=== PATIENT | male | born 1980 | race Caucasian/White ===

== ENCOUNTER 2021-04-02 15:03 | Emergency (ER) | payer BC ==
[~2021-04-02] VITALS: Ht 188 cm; Wt 98.9 kg
[2021-04-02 15:10] VITALS: BP_SYST 156
[2021-04-02 16:08] LABS: BILIRUBIN,URINE NEGATIVE (NEGATIVE); BLOOD, URINE NEGATIVE (NEGATIVE); CLARITY/URINE CLEAR (CLEAR); COLOR,URINE YELLOW (YELLOW); GLUCOSE,URINE NEGATIVE (NEGATIVE); KETONES,URINE NEGATIVE (NEGATIVE); LEUKOCYTE ESTERASE ,URINE NEGATIVE (NEGATIVE); NITRITE, URINE NEGATIVE (NEGATIVE); PROTEIN URINE NEGATIVE (NEGATIVE); UROBILINOGEN,URINE 0.2 (0.2-1.0)
[2021-04-02 16:25] LABS: BASOPHILS % (AUTO) 0.2 % (0.0-2.0); EOSINOPHILS # (AUTO) 0.1 K/uL (0.0-0.4); EOSINOPHILS % (AUTO) 1.5 % (0.0-4.0); HEMATOCRIT 47.4 % (36-54); LYMPHOCYTES # (AUTO) 2.1 K/uL (1.0-5.5); LYMPHOCYTES % (AUTO) 25.1 % (20.5-51.5); MEAN CORPUSCULAR HEMOGLOBIN 30 pg (27-31); MEAN CORPUSCULAR HGB CONC 34 % (32-36); MEAN CORPUSCULAR VOLUME 90 fL (79.0-98.0); MONOCYTES # (AUTO) 0.6 K/uL (0.0-1.0); MONOCYTES % (AUTO) 7.2 % (1.7-9.3); NEUTROPHILS # (AUTO) 5.6 K/uL (1.8-7.7); PLATELET COUNT (AUTO) 196 K/uL (130-430); RED BLOOD CELL COUNT(AUTO) 5.27 MIL/uL (4.2-6.2); RED CELL DISTRIBUTION WIDTH 12.3 % (9.0-15.0); WHITE BLOOD COUNT (AUTO) 8.5 K/uL (4.8-10.8)
[2021-04-02 16:29] LABS: CREATININE 1.07 mg/dL (0.55-1.30)
[2021-04-02 16:41] LABS: ALBUMIN 3.9 g/dL (3.4-4.8); TOTAL BILIRUBIN 0.4 mg/dL (0.0-1.0)
[2021-04-02] MEDS ORDERED: OMEP10CA5 PO (17:28)
[2021-04-02 17:39] VITALS: BP_SYST 140
== END 2021-04-02 17:39 | disposition home or self-care (01) ==
LOC: SED 15:03
DX: R10.12 Left upper quadrant pain (principal); Z79.899 Other long term (current) drug therapy
CPT/HCPCS: 36415; 74177; 76376; 80053; 81003; 83690; 85025; 99285; Q9967

== ENCOUNTER 2022-06-30 18:05 | Emergency (ER) | payer BC ==
[~2022-06-30] VITALS: Ht 188 cm; Wt 99.8 kg
[2022-06-30 18:05] VITALS: BP_SYST 164
[~2022-06-30 18:05] MED LIST: OMEP10CA5 PO
--- NOTE | 2022-06-30 18:10 | NUR ---
BROUGHT BACK TO BED #5 AFTER BEING TRIAGED, REPORT GIVEN TO NURSE
--- NOTE | 2022-06-30 18:15 | NUR ---
PT STATES AFTER [place], PT STATES UPPER BACK PAIN BETWEEN SHOULDER BLADES. PT DENIES ANY INJURY OR TRAUMA. PT STATES PAIN IS GETTING INCREASINGLY WORSE. PAIN WITH MOVEMENT
--- NOTE | 2022-06-30 18:17 | NUR ---
DR MCKEON AT BEDSIDE FOR EVALUATION
[2022-06-30] MEDS ORDERED: KETOROLAC TROMETHAMINE 60 MG/2 ML VIAL IM ONE (18:30)
--- NOTE | 2022-06-30 18:30 | NUR ---
TAKEN TO RADIOLOGY VIA AMBULATORY
--- NOTE | 2022-06-30 18:38 | NUR ---
RETURNED FROM RADIOLOGY, PLACED BACK TO ROOM #5
[2022-06-30] MEDS ORDERED: METH-634 PO (19:05)
[2022-06-30] MEDS ORDERED: IBUP-1969 PO (19:05)
[2022-06-30] MEDS ORDERED: TRAM50TA PO (19:05)
[2022-06-30 19:32] VITALS: BP_SYST 132
--- NOTE | 2022-06-30 19:32 | NUR ---
Patient given written and verbal discharge instructions and verbalizes understanding. ER MD discussed with patient the results and treatment provided. Patient in stable condition. ID arm band removed. Rx of IBUPROFEN, ROBAXIN & TRAMADOL given. Patient educated on pain management and to follow up with PMD. Pain Scale 2/10. Opportunity for questions provided and answered. Medication side effect fact sheet provided.
== END 2022-06-30 19:32 | disposition home or self-care (01) ==
LOC: SED 18:05
DX: M54.6 Pain in thoracic spine (principal); Z79.899 Other long term (current) drug therapy
CPT/HCPCS: 99284; 71045; 72072; J1885